=== PATIENT | male | born 1940 | race Caucasian/White ===

== ENCOUNTER 2019-09-17 23:19 | Inpatient (IN) ==
[2019-09-18 00:19] LABS: BASO# 0.03 X1000 (0.0-0.2); BASO% 0.6 % (0.0-0.8); HEMATOCRIT 35.9 % (42.0-52.0); HEMOGLOBIN 11.1 g/dL (14.0-18.0); LYMPH# 0.82 X1000 (1.2-3.4); MCHC 30.9 g/dL (33-37); MCV 90.4 FL (81-99); MONO# 0.45 X1000 (0.11-0.59); MONO% 9.3 % (1.7-9.3); MPV 10.5 FL (7.4-10.4); NEUT# 3.52 X1000 (1.4-6.5); NEUT% 73.1 % (42.2-75.2); PLT 176 X1000 (130-400); RBC 3.97 XMIL (4.7-6.1); WBC 4.82 X1000 (4.8-10.8)
[2019-09-18 00:47] LABS: ALB/GLOB RATIO 2.3; ALBUMIN 4.3 g/dL (3.5-5.0); CALCIUM 9.8 mg/dL (8.8-10.2); CREATININE 1.4 mg/dL (0.7-1.2); MAGNESIUM 1.3 mg/dL (1.5-2.7); POTASSIUM 4.8 mmol/L (3.5-5.1); TOTAL BILIRUBIN 0.47 mg/dL (0.20-1.00); TOTAL PROTEIN 6.2 g/dL (6.3-8.3)
--- NOTE | 2019-09-18 01:02 | PROVIDER DOCUMENTATION ---
HPI-Respiratory General - General Chief Complaint: Shortness of Breath Stated Complaint: ocugh/sob Time Seen by Provider: 09/17/19 23:20 Source: patient, EMS Allergies/Adverse Reactions: Patient Allergies Allergy/AdvReac Type Severity Reaction Status Date / Time No Known Allergies Allergy Verified 09/18/19 00:19 Home Medications: Home Medication List Medication Instructions Recorded Confirmed Last Taken Type Albuterol Sulfate [Proair Hfa] 8.5 gm IH BID 07/13/13 09/18/19 07/13/13 06:00 History Albuterol [Albuterol Neb] 2.5 mg INH [id number] 07/13/13 09/18/19 Unknown History Buspirone [Buspar] 15 mg PO BID 07/13/13 09/18/19 07/13/13 15:00 History Escitalopram [Lexapro] 10 mg PO DAILY 07/13/13 09/18/19 07/13/13 06:00 History Fenofibrate [Tricor] 145 mg PO QHS 07/13/13 09/18/19 07/12/13 20:00 History Finasteride 5 mg PO DAILY 07/13/13 09/18/19 07/13/13 06:00 History Fluticasone 50 Mcg Nasal [place] 1 spray WALDO DAILY 07/13/13 09/18/19 07/13/13 15:00 History [Flonase] LISINOpril [Prinivil] 10 mg PO DAILY 07/13/13 09/18/19 07/13/13 06:00 History Metformin E.r. [Glucophage Xr] 1,000 mg PO DAILY 07/13/13 09/18/19 07/13/13 15:00 History Metoprolol [Lopressor] 25 mg PO DAILY 07/13/13 09/18/19 07/13/13 06:00 History Ropinirole [Requip] 1 mg PO QHS 07/13/13 09/18/19 07/12/13 20:00 History Tamsulosin [Flomax] 0.4 mg PO QHS 07/13/13 09/18/19 07/12/13 20:00 History Tramadol HCl 50 mg PO Q8H PRN PRN 07/13/13 09/18/19 07/13/13 15:00 History Finasteride [Proscar] 5 mg PO DAILY 07/29/13 09/18/19 06/03/16 History Omeprazole [Prilosec] 20 mg PO DAILY 07/29/13 09/18/19 06/03/16 History Trazodone [Desyrel] 50 mg PO QHS 07/29/13 09/18/19 06/02/16 History Clopidogrel [Plavix] 75 mg PO DAILY #30 tablet 07/31/13 09/18/19 06/03/16 Rx PRAVAstatin [Pravachol] 20 mg PO QPM #30 tablet 07/31/13 09/18/19 06/02/16 Rx Budesonide/Formoterol Fumarate 10.2 gm IH DAILY 06/03/16 09/18/19 Unknown History [Symbicort 160-4.5 Mcg Inhaler] Folic Acid 1 mg PO DAILY tablet 07/05/17 09/18/19 Unknown Rx Iron Carbonyl/Ascorbic Acid 1 each PO DAILY tablet 07/05/17 09/18/19 Unknown Rx [Icar-C] - History of Present Illness-Resp Nature of Presenting Problem: A 78 y/o male presents with c/o SOB since morning. As per EMS pt was dyspneic on his 3 liters O2 and they increased it to 4 ltrs. Pt has been coughing a little and has some fever. Denies any CP or abd pain. Pt is from home. Unsure if has a exposure to sick persons. No recent travel. Review of Systems - Adult - REVIEW OF SYSTEMS - ADULT Constitutional: denies: no symptoms reported Eyes: denies: no symptoms reported Ears, Nose, Mouth & Throat: denies: no symptoms reported Cardiovascular: denies: no symptoms reported Respiratory: reports: see HPI Gastrointestinal: denies: no symptoms reported Genitourinary: denies: no symptoms reported Musculoskeletal: denies: no symptoms reported Integumentary: denies: no symptoms reported Neurological: denies: no symptoms reported Psychiatric: denies: no symptoms reported Endocrine: denies: no symptoms reported Hematologic/Lymphatic: denies: no symptoms reported Allergic/Immunologic: denies: no symptoms reported Past History - Adult - PAST MEDICAL HISTORY-ADULT Review of Records: reports: Old Records Reviewed, Nursing Assessment Review, Medications Reviewed, Social history reviewed & non-contributory. Major Childhood Illnesses: reports: denies history Cardiovascular: reports: HTN, hyperlipidemia Respiratory: reports: asthma, COPD Gastrointestinal: reports: GERD Obstetrical/Gynecological: reports: denies history Genitourinary: reports: other (BPH) Musculoskeletal: reports: arthritis Neurological: reports: CVA (per son), TIA Psychiatric: reports: depression, other (insomnia) Endocrine/Immune: reports: Diabetes Other Conditions: reports: denies history - PRIOR SURGERIES/PROCEDURES Surgical/Procedure History: reports: reviewed, not pertinent - IMMUNIZATION STATUS Childhood Immunizations: See Nurse Assessment Flu Vaccine: See Nurse Assessment - FAMILY HISTORY Family History: reviewed, not pertinent Physical Exam-General - PHYSICAL EXAM-ADULT Initial Vital Signs Reviewed: Yes - CONSTITUTIONAL General Appearance: alert, mild distress - EYES Eyes: PERRL/EOMI - HEAD, EARS, NOSE, MOUTH & THROAT HENMT: normocephalic/atraumatic, normal ENT inspection, pharynx normal. negative: moist mucous membranes - NECK Neck: supple - RESPIRATORY Respiratory: respiratory distress, decreased breath sounds, accessory muscle use , rhonchi, wheezing - CARDIOVASCULAR Cardiovascular: normal peripheral pulses, no edema, no murmur, tachycardia - GASTROINTESTINAL (ABDOMEN) Abdominal Exam: non tender, soft - MUSCULOSKELETAL Extremity: no pedal edema - SKIN Integumentary: normal color, warm/dry - NEUROLOGIC Neurologic: grossly normal - PSYCHIATRIC Psych/Mental Status: normal mood/affect, oriented x 3 Progress - PLAN OF CARE/RESULTS Progress/Plan/Lab Results: Vital Signs - 8 hr 09/18/19 00:07 Temperature 99.9 F H Pulse Rate 91 H Respiratory Rate 22 Blood Pressure 148/100 O2 Sat by Pulse Oximetry 94 L Laboratory Results - last 24 hr 09/17/19 09/17/19 09/17/19 23:45 23:45 23:45 WBC RBC Hgb Hct MCV MCH MCHC RDW Std Deviation Plt Count MPV Immature Gran % (Auto) Neut % (Auto) Lymph % (Auto) Delta % (Auto) Eos % (Auto) Baso % (Auto) Immature Gran # (Auto) Neut # (Auto) Lymph # (Auto) Delta # (Auto) Eos # (Auto) Baso # (Auto) Sodium 139 Potassium 4.8 Chloride 99 Carbon Dioxide 27 Anion Gap 13 BUN 34 H Creatinine 1.4 H Estimated GFR/1.73 m2 49 BUN/Creatinine Ratio 24 Glucose 153 H Calculated Osmolality 288 Calcium 9.8 Magnesium 1.3 L Total Bilirubin 0.47 AST 27 ALT 16 Alkaline Phosphatase 25 L Creatine Kinase 274 H Creatine Kinase Index 0.9 CK-MB (CK-2) 2.47 Troponin T High Sens 33 H Lhc-I-Hxltnytyxra Pept 1124 H Total Protein 6.2 L Albumin 4.3 Globulin 1.9 Albumin/Globulin Ratio 2.3 Plasma Lactate 09/17/19 09/17/19 23:45 23:45 WBC 4.82 RBC 3.97 L Hgb 11.1 L Hct 35.9 L MCV 90.4 MCH 28.0 MCHC 30.9 L RDW Std Deviation 14.0 Plt Count 176 MPV 10.5 H Immature Gran % (Auto) 0.0 Neut % (Auto) 73.1 Lymph % (Auto) 17.0 L Delta % (Auto) 9.3 Eos % (Auto) 0.0 Baso % (Auto) 0.6 Immature Gran # (Auto) 0.00 Neut # (Auto) 3.52 Lymph # (Auto) 0.82 L Delta # (Auto) 0.45 Eos # (Auto) 0.00 Baso # (Auto) 0.03 Sodium Potassium Chloride Carbon Dioxide Anion Gap BUN Creatinine Estimated GFR/1.73 m2 BUN/Creatinine Ratio Glucose Calculated Osmolality Calcium Magnesium Total Bilirubin AST ALT Alkaline Phosphatase Creatine Kinase Creatine Kinase Index CK-MB (CK-2) Troponin T High Sens Uoa-Y-Texyvpyhxcy Pept Total Protein Albumin Globulin Albumin/Globulin Ratio Plasma Lactate 0.9 Orders Category Date Time Status NEWS Score 2-4:Order NEWS Lactate Series NOW Care 09/18/19 00:11 Active CHEST-1 VIEW [RAD] Stat Exams 09/17/19 23:[address] THORAX W/O CONTRAST [CT] Stat Exams 09/18/19 02:05 Ordered CBC WITH ELECTRONIC DIFF [HEME] Stat Lab 09/18/19 00:02 Completed CK PROFILE [SP CHEM] Stat Lab 09/18/19 00:02 Completed COMPREHENSIVE METABOLIC PANEL [CHEM] Stat Lab 09/18/19 00:02 Completed LACTATE, PLASMA [CHEM] Lab 09/18/19 03:30 Uncollected LACTATE, PLASMA [CHEM] Lab 09/18/19 06:30 Uncollected LACTATE, PLASMA [CHEM] Q3H Lab 09/18/19 00:16 Completed MAGNESIUM [CHEM] Stat Lab 09/18/19 00:02 Completed PRO B-NATRIURETIC PEPTIDE Stat Lab 09/18/19 00:02 Completed TROPONIN T HIGH SENSITIVITY Stat Lab 09/18/19 00:02 Completed Azithromycin 500 mg/Ns [Zithromax 500 mg/Ns] Med 09/18/19 02:05 Ordered 500 mg in 250 ml IV NOW Furosemide [Lasix] Med 09/18/19 01:47 Discontinued 40 mg IV NOW ONE Rocephin 1 gm/Ns IV Now Med 09/18/19 02:05 Ordered CefTRIAXONE [Rocephin] 1 gm 0.9% Sodium Chloride Inj [Ns] 50 ml IV NOW Result Diagrams: 09/17/19 23:45 09/17/19 23:45 - REASSESSMENT Reassessment #1 Time Reassessed: 01:00 Status: improving - CONSULTS/PCP/HOSPITALIST Notification #1 *Consult/PCP/Hospitalist*: d/w Dr Hernández Time Discussed: 01:55 Consult Disposition: Admit Departure - Departure Date of Disposition Decision: 09/18/19 Time of Disposition Decision: 02:00 DIAGNOSIS: COPD with acute exacerbation, SOB (shortness of breath), Pneumonia Disposition: ADMITTED INPATIENT 09 Certified Medical Emergency: Emergent Condition: Stable - Critical Care Note This patient required my direct & personal management of CC.: No Attestation - Physician/ LESLEY Attestation Patient care was provided by Advanced Practice Provider:: No The physician spent face to face time with patient:: Yes Advanced Practice Provider documentation review:: Supervising physician onsite and consulted in the evaluation and care of this patient. The physician did have a face to face encounter with the patient.
[2019-09-18 01:27] LABS: CK INDEX 0.9 (0.0-2.5); CK-MB 2.47 ng/mL (0.0-5.0)
[2019-09-18] MEDS ORDERED: LASIX IV ONE (01:47)
[2019-09-18] MEDS ORDERED: ROCEPHIN 1 GM in NS 50 ML IV ONE (02:05)
[2019-09-18] MEDS ORDERED: ZITHROMAX 500 MG/NS 500 MG/250 ML IVPB IV ONE (02:05)
[2019-09-18 02:26] LABS: URINE SOURCE CATH
[2019-09-18 02:29] LABS: BILIRUBIN URINE NEGATIVE (NEGATIVE); BLOOD URINE TRACE (NEGATIVE); COLOR YELLOW; GLUCOSE URINE NEGATIVE (NEGATIVE); KETONE URINE NEGATIVE (NEGATIVE); LEUKOCYTES URINE NEGATIVE (NEGATIVE); NITRITE URINE NEGATIVE (NEGATIVE); PH URINE 6.5; PROTEIN URINE TRACE mg/dL (NEGATIVE); SP GRAVITY URINE 1.021; TURBIDITY URINE CLEAR (CLEAR); UROBILINOGEN URINE NORMAL (NORMAL)
[2019-09-18 02:30] LABS: UR EPITHELIAL CELLS <10 /HPF (<10); URINE BACTERIA NEGATIVE /HPF; URINE RBC <10 /HPF (<10); URINE WBC <10 /HPF (<10)
--- NOTE | 2019-09-18 03:26 | HISTORY AND PHYSICAL ---
PRIMARY CARE PHYSICIAN: Tj Arriola MD. REASON FOR ADMISSION: Three days history of shortness of breath and increasing productive cough. HISTORY OF PRESENT ILLNESS: Mr. Santi Guerin is a 78-year-old male with past medical history of type 2 diabetes, COPD on home O2 at 2 to 3 L, hypertension, BPH, reflux disease, hyperlipidemia, probable peripheral arterial disease, who was brought in today on account of having a 3-day history of worsening acute on chronic shortness of breath with a cough productive of yellowish- greenish sputum and subjective chills, but no fever. Denies any sick contacts. Denies any travel. Denies any upper respiratory symptoms. Denies any chest pain other than pleuritic chest pain in his right lung. He is a very poor historian by the way, so most of this history should be taking with pinch of salt. The patient denies any palpitations, lightheadedness, nausea, vomiting. He denies any other GI complaints. Admits to having poor urinary stream which is chronic. No hematuria. No bleeding from any orifice. No polyuria or polydipsia. No focal neurological complaints. REVIEW OF SYSTEMS: Twelve system review was done, positive findings per HPI. No PND, orthopnea. No leg swelling. ALLERGIES: No known allergies. HOME MEDICATIONS: He takes trazodone 50 mg at bedtime, Flomax 0.4 mg at bedtime, Requip 1 mg at bedtime, Tricor 145 mg at bedtime, albuterol inhaler q.4 hours p.r.n., buspirone 15 mg daily, finasteride 5 mg daily, Flonase 1 puff daily, metformin 750 mg daily, Lexapro 20 mg daily, metoprolol 25 mg daily, Prilosec 20 mg daily, lisinopril 10 mg daily, Symbicort daily, tramadol 50 mg at bedtime, folic acid 1 mg daily, ICar-C 1 tablet daily, Plavix 75 mg daily, Pravachol 20 mg daily. FAMILY HISTORY: Notable for heart disease and type 2 diabetes. SOCIAL HISTORY: Does smoke, but does dip snuff daily. Lives with his brother. He does not drink or use illicit drugs. SURGICAL HISTORY: Other than left eye and left leg surgery, nil of note. LAB WORK: Chest film reviewed by me shows findings consistent with COPD with possible right upper lobe infiltrate. White count 4000, hemoglobin and hematocrit 11 and 36, platelet count 176,000, with normal differential. BUN is 34, creatinine 1.4, glucose 154, magnesium 1.3. CK 274, troponin 33. ProBNP 1100. Lactate 0.9. Urinalysis, trace protein, trace blood. The flu swab negative. PHYSICAL EXAMINATION: GENERAL: A thin, chronically ill elderly white male who is in acute respiratory distress. He is alert and oriented to person, place, time with normal mood and affect. No myoclonic jerking. HEENT: Head is normocephalic, atraumatic. Eyes: LEYDA, EOMI. He is anicteric, not pale. ENT: Oropharyngeal exam is grossly normal. Some cyanosis. NECK: Supple. No visualized JVD. No bruit. No thyromegaly. He has somewhat decreased skin turgor. CHEST: Significantly decreased entry in both lung michel with a few expiratory wheezes. No crepitations appreciated. CARDIOVASCULAR: First and second heart sounds were heard. No gallops, murmurs, rubs. Rhythm is regular. ABDOMEN: Full, soft, nontender. No mass or organomegaly. Bowel sounds are hypoactive. RECTAL: Deferred. EXTREMITIES: No edema, clubbing, peripheral cyanosis. Distal pulse volumes, regular, symmetrical, full. NEUROLOGICAL: No gross focal deficits. SKIN: No overt breakdown, lesions or erythema. MUSCULOSKELETAL: Patient is a an elderly man with diffuse sarcopenia. ASSESSMENT: 1. Chronic obstructive pulmonary disease exacerbation. 2. Probable right upper lobe pneumonia. 3. Acute on chronic respiratory failure. 4. Peripheral arterial disease. 5. Type 2 diabetes. 6. Prior history of cerebrovascular accident. 7. Benign prostatic hypertrophy. 8. Hyperlipidemia. 9. Hypomagnesemia. 10. Anemia of chronic inflammation. 11. Probable restless legs syndrome. 12. Reflux disease. PLAN: Patient will be admitted and started on a short course of steroids and bronchodilators. Start the patient on Rocephin and Zithromax empirically. CT scan of the thorax is pending to evaluate the right upper lobe findings. If the patient does have any evidence of increased vascular markings, I would strongly recommend patient be hydrated with normal saline over the next 24 hours. He was given IV Lasix in the ER based on his x-ray findings, but clinically his clinical exam does not seem to match congestive heart failure. We will start patient on long- acting and short-acting insulin to address blood sugars. I would recommend the patient discontinue Prilosec and switch to Protonix due to the 4 month's affect on attenuating the effects of Plavix, which he is on for CVA prophylaxis. cc: Temitope Hernández MD
[2019-09-18] MEDS ORDERED: MAGNESIUM SULFATE 2 GM/S.W.I. 2 GM/50 ML IVPB IV ONE (03:50)
[2019-09-18] MEDS ORDERED: ZOFRAN IV PRN (03:50)
[2019-09-18] MEDS ORDERED: DUONEB (A & A) INH SCH (04:00)
[2019-09-18] MEDS: LOVENOX SUBQ SCH (04:45)
[2019-09-18] MEDS: MUCINEX PO SCH ×3 (04:45→21:14)
[2019-09-18] MEDS: PROTONIX [NONFORMULARY] PO SCH (06:24)
[2019-09-18] MEDS: HUMALOG SUBQ SCH ×4 (06:31→21:15)
--- NOTE | 2019-09-18 06:41 | Diag Imaging Result Doc PS360 ---
CHEST-1 VIEW - 09/17/2019 INDICATION: SOB COMPARISON: 08/19/2018 FINDINGS: There are faint interstitial infiltrates in the lung bases bilaterally. There is advanced COPD. There is biapical pleural scarring. Heart size is top normal. No pneumothorax or pleural effusion. IMPRESSION: 1. Advanced COPD. 2. Faint interstitial infiltrates in the lung bases, nonspecific. This could represent pulmonary edema, pneumonia, or viral infection. Electronically signed by Jim Campbell 09/18/2019 6:39 AM
--- NOTE | 2019-09-18 07:34 | Diag Imaging Result Doc PS360 ---
EXAM: CT THORAX W/O CONTRAST HISTORY: pneumonia TECHNIQUE: CT chest without contrast COMPARISON: 07/01/2017 FINDINGS: No large pleural effusions. Left medial pleural thickening inferiorly. No cardiomegaly. Moderate to prominent atherosclerosis. There are calcified mediastinal and hilar lymph nodes with scattered granuloma. Small hiatal hernia. Right posterior pleural thickening in the apex extending medially similar to the prior exam. There are several benign calcifications within this. There is bilateral fibrosis most pronounced in the apices. Severe emphysema. Tiny nodules/nodular densities scattered similar to the prior exam. Patchy reticulonodular infiltrates anteriorly in the left lower lobe. No consolidation. Limited images through the upper abdomen reveal several cysts within the liver. IMPRESSION: 1.Severe emphysema with fibrosis 2.Tiny reticulonodular infiltrates anteriorly in the left lower lobe 3.Small hiatal hernia 4.A preliminary report was given at 3:34 AM This exam was performed using automated exposure control, adjustment of mA or kV according to patient size, and/or use of iterative reconstruction technique. Electronically signed by Jones Garland 09/18/2019 7:32 AM
[2019-09-18] MEDS ORDERED: PREDNISONE PO SCH (09:00)
[2019-09-18] MEDS: VENTOLIN HFA INH SCH ×5 (10:24→23:33)
[2019-09-18] MEDS: PLAVIX PO SCH (10:42)
[2019-09-18] MEDS: LEXAPRO PO SCH (10:42)
[2019-09-18] MEDS: PROSCAR PO SCH (10:42)
[2019-09-18] MEDS: LOPRESSOR PO SCH (10:43)
[2019-09-18] MEDS: BUSPAR PO SCH ×2 (10:43→21:14)
[2019-09-18] MEDS: LANTUS INSULIN SUBQ SCH (10:43)
[2019-09-18] MEDS: FOLIC ACID PO SCH (10:43)
[2019-09-18] MEDS: ICAR-C PO SCH (10:43)
--- NOTE | 2019-09-18 11:37 | PROGRESS NOTE ---
DATE: 09/18/2019 BRIEF PROGRESS NOTE: The patient was admitted with progressive cough and dyspnea. Patient with a history of severe COPD. He is on oxygen at 2 to [address] showing likely fairly modest left lower lobe pneumonia. The patient continues to complain of dyspnea that is only mildly improved. On exam, he does have some mild wheezing and fairly significant decreased air entry throughout, likely mild pneumonia and possibly viral upper respiratory infection with COPD exacerbation. Given elevated respiratory rate and tachycardia beyond what I would expect, given his empiric findings, I am going to check a D-dimer on him but there is no limb swelling or no prolonged immobility that would put him at high risk for clot. Given symptoms with cough and dyspnea, I will check Covid-19 status. The patient is placed in isolation. Patient is on antibiotics with Rocephin and azithromycin. Kidney function stable. Glucose okay. Patient with mild anemia which is also stable from previous.
--- NOTE | 2019-09-18 17:49 | Diag Imaging Result Doc PS360 ---
EXAM: CT HEAD W/O CONTRAST HISTORY: r/o stroke TECHNIQUE: CT head without contrast COMPARISON: 07/01/2017 FINDINGS: No parenchymal hemorrhage. No epidural or subdural hematoma. No subarachnoid hemorrhage. Old left occipital infarct. There are chronic periventricular microvascular ischemic changes. No mass identified on this noncontrasted exam. No hydrocephalus. No sinus opacification. IMPRESSION: 1.No hemorrhage 2.Old right occipital infarct with chronic microvascular ischemic changes This exam was performed using automated exposure control, adjustment of mA or kV according to patient size, and/or use of iterative reconstruction technique. Electronically signed by Jones Garland 09/18/2019 5:47 PM
[2019-09-18] MEDS: ASPIRIN PO SCH (18:02)
[2019-09-18] MEDS ORDERED: PRAVACHOL PO SCH (21:00)
[2019-09-18] MEDS: REQUIP PO SCH (21:14)
[2019-09-18] MEDS: FLOMAX PO SCH (21:14)
[2019-09-18] MEDS: DESYREL PO SCH (21:14)
[2019-09-18] MEDS: LIPITOR PO SCH (22:07)
[2019-09-19] MEDS: ROCEPHIN 1 GM in NS 50 ML IV SCH ×2 (00:33→23:52)
[2019-09-19] MEDS: ZITHROMAX 500 MG/NS 500 MG/250 ML IVPB IV SCH (01:36)
[2019-09-19] MEDS: HUMALOG SUBQ SCH ×4 (06:10→22:59)
[2019-09-19] MEDS: VENTOLIN HFA INH SCH ×6 (06:16→21:15)
[2019-09-19] MEDS: LOVENOX SUBQ SCH (07:05)
[2019-09-19] MEDS: PROTONIX [NONFORMULARY] PO SCH (07:05)
[2019-09-19] MEDS ORDERED: CATAPRES PO PRN (07:45)
--- NOTE | 2019-09-19 08:02 | PROGRESS NOTE ---
DATE: 09/19/2019 SUBJECTIVE: Mr. Guerin is a 78-year-old white gentleman, known case of COPD, hypertension, gastritis, admitted with chest congestion, cough, shortness of breath, decreased exercise tolerance. The patient was admitted by hospitalist. The patient's family called me about the patient's admission. The patient does have cough, shortness of breath. He denied any fever. The patient was restless. No dysuria or hematuria. The patient denied known exposure to coronavirus. No diarrhea, blood or mucus in the stool. Oral intake is fair. Unquantified weight loss. The patient does have arthritic pain in the knee, at times in the lower back. PAST MEDICAL HISTORY: 1. Hypertension. 2. NIDDM. 3. Hyperlipidemia. 4. Gastritis. 5. COPD. 6. Chronic respiratory failure. 7. Situational depression. OBJECTIVE: Vital Signs: His vital signs noted. Neck: Neck is supple. No JVD, thyromegaly or lymphadenopathy. Chest: Bibasilar crepitation, occasional wheezing. CVS: S1 and S2 heard. Abdomen: Soft, globular. Bowel sounds present. Extremities: No cyanosis, clubbing. No acute DVT. SPRING COVERER: Alert, awake able to move all 4 limbs. IMAGING STUDIES: The patient's chest CT scan and head CT scan result reviewed. CONSIDERATION: 1. Chronic obstructive pulmonary disease exacerbation, pulmonary fibrosis and possible pneumonia. The patient is being tested for Coronavirus Disease 2019. 2. History suggestive of benign prostatic hyperplasia, gastritis. 3. Pulmonary fibrosis. 4. Non insulin-dependent diabetes mellitus requiring insulin. I am going to put him on Solu-Medrol, gentle hydration, continue IV antibiotics, pulmonary toilet, fall precaution. Overall plan discussed with the patient and he is in agreement. cc: Tj Arriola MD
[2019-09-19] MEDS: BUSPAR PO SCH ×2 (08:09→23:19)
[2019-09-19] MEDS: PROSCAR PO SCH (08:09)
[2019-09-19] MEDS: LEXAPRO PO SCH (08:10)
[2019-09-19] MEDS: PLAVIX PO SCH (08:10)
[2019-09-19] MEDS: FOLIC ACID PO SCH (08:10)
[2019-09-19] MEDS: ASPIRIN PO SCH (08:10)
[2019-09-19] MEDS: SOLU-MEDROL IV SCH ×2 (08:10→16:20)
[2019-09-19] MEDS: LOPRESSOR PO SCH (08:10)
[2019-09-19] MEDS: MUCINEX PO SCH ×2 (08:10→23:32)
[2019-09-19] MEDS: ICAR-C PO SCH (08:10)
[2019-09-19] MEDS: LANTUS INSULIN SUBQ SCH (08:12)
[2019-09-19 08:15] LABS: BASO# 0.01 X1000 (0.0-0.2); BASO% 0.2 % (0.0-0.8); HEMOGLOBIN 11.9 g/dL (14.0-18.0); LYMPH# 0.49 X1000 (1.2-3.4); LYMPH% 10.6 % (20.5-51.1); MCH 27.7 PG (27-31); MCHC 31.3 g/dL (33-37); MCV 88.6 FL (81-99); MPV 11.5 FL (7.4-10.4); NEUT# 3.53 X1000 (1.4-6.5); NEUT% 76.2 % (42.2-75.2); PLT 220 X1000 (130-400); RBC 4.29 XMIL (4.7-6.1); RDW 13.9 % (11.5-14.5); WBC 4.63 X1000 (4.8-10.8)
[2019-09-19] MEDS: POTASSIUM CHLORIDE 10 MEQ in NS 1,000 ML IV SCH ×2 (08:17→23:29)
[2019-09-19 11:29] LABS: CALCIUM 9.7 mg/dL (8.8-10.2); CREATININE 1.3 mg/dL (0.7-1.2); POTASSIUM 3.8 mmol/L (3.5-5.1)
[2019-09-19] MEDS: ATIVAN PO SCH ×2 (13:45→16:23)
[2019-09-19] MEDS: TYLENOL PO PRN (16:21)
[2019-09-19] MEDS: ULTRAM PO PRN (16:22)
[2019-09-19] MEDS ORDERED: STERILE WATER INJ. INJ PRN (16:47)
[2019-09-19] MEDS: GEODON IM PRN (17:51)
[2019-09-19] MEDS: DESYREL PO SCH (23:32)
[2019-09-19] MEDS: LIPITOR PO SCH (23:32)
[2019-09-19] MEDS: FLOMAX PO SCH (23:32)
[2019-09-19] MEDS: REQUIP PO SCH (23:32)
[2019-09-20] MEDS: ROCEPHIN 1 GM in NS 50 ML IV SCH (01:43)
[2019-09-20] MEDS: ZITHROMAX 500 MG/NS 500 MG/250 ML IVPB IV SCH (01:43)
[2019-09-20] MEDS: LOVENOX SUBQ SCH ×2 (01:44→03:06)
[2019-09-20] MEDS: SOLU-MEDROL IV SCH ×2 (01:44→10:40)
[2019-09-20] MEDS: VENTOLIN HFA INH SCH ×6 (01:45→20:41)
[2019-09-20] MEDS: HUMALOG SUBQ SCH ×4 (06:42→22:59)
[2019-09-20] MEDS: PROTONIX [NONFORMULARY] PO SCH (06:53)
[2019-09-20 07:22] LABS: BASO# 0.06 X1000 (0.0-0.2); BASO% 2.1 % (0.0-0.8); HEMATOCRIT 35.6 % (42.0-52.0); LYMPH# 0.35 X1000 (1.2-3.4); LYMPH% 12.4 % (20.5-51.1); MCH 27.8 PG (27-31); MCHC 30.9 g/dL (33-37); MCV 90.1 FL (81-99); MONO# 0.21 X1000 (0.11-0.59); MONO% 7.4 % (1.7-9.3); MPV 10.3 FL (7.4-10.4); NEUT# 2.21 X1000 (1.4-6.5); NEUT% 78.1 % (42.2-75.2); PLT 202 X1000 (130-400); RBC 3.95 XMIL (4.7-6.1); RDW 13.7 % (11.5-14.5); WBC 2.83 X1000 (4.8-10.8)
[2019-09-20 08:04] LABS: AGAP 11; ALB/GLOB RATIO 1.6; ALBUMIN 3.9 g/dL (3.5-5.0); ALKALINE PHOSPHATASE 24 U/L (32-122); BUN 42 mg/dL (8-22); CALCIUM 9.4 mg/dL (8.8-10.2); CHLORIDE 103 mmol/L (98-107); COSMO 297; CREATININE 1.1 mg/dL (0.7-1.2); ESTIMATED GFR > 60; GLUCOSE 158 mg/dL (70-104); GOT 76 U/L (10-34); GPT 34 U/L (10-44); MAGNESIUM 1.8 mg/dL (1.5-2.7); PHOSPHORUS 2.8 mg/dL (2.7-4.5); POTASSIUM 4.4 mmol/L (3.5-5.1); SODIUM 142 mmol/L (136-145); TCO2 28 mmol/L (25-35); TOTAL BILIRUBIN 0.36 mg/dL (0.20-1.00); TOTAL PROTEIN 6.3 g/dL (6.3-8.3)
[2019-09-20] MEDS: POTASSIUM CHLORIDE 10 MEQ in NS 1,000 ML IV SCH (10:38)
[2019-09-20] MEDS: ASPIRIN PO SCH (10:42)
[2019-09-20] MEDS: ATIVAN PO SCH ×3 (10:43→17:11)
[2019-09-20] MEDS: ICAR-C PO SCH (10:43)
[2019-09-20] MEDS: LOPRESSOR PO SCH (10:43)
[2019-09-20] MEDS: BUSPAR PO SCH ×2 (10:43→22:56)
[2019-09-20] MEDS: FOLIC ACID PO SCH (10:43)
[2019-09-20] MEDS: PLAVIX PO SCH (10:43)
[2019-09-20] MEDS: MUCINEX PO SCH ×2 (10:43→22:56)
[2019-09-20] MEDS: LEXAPRO PO SCH (10:43)
[2019-09-20] MEDS: PROSCAR PO SCH (10:43)
[2019-09-20] MEDS: LANTUS INSULIN SUBQ SCH (10:44)
[2019-09-20] MEDS: GEODON IM PRN ×2 (13:26→17:11)
[2019-09-20] MEDS ORDERED: STERILE WATER INJ. INJ ONE (13:37)
[2019-09-20] MEDS ORDERED: GEODON IM ONE (13:37)
--- NOTE | 2019-09-20 15:09 | PROGRESS NOTE ---
DATE: 09/20/2019 SUBJECTIVE: Patient denies having any acute complaints, but he appears to be somewhat hyperactive. OBJECTIVE: Vital Signs: Temperature 98.4 degrees, pulse 68 per minute, respiratory rate 18 per minute, blood pressure 151/74, pulse oximetry 98% on 3 L of oxygen via nasal cannula. General: Patient is alert and awake. He does not appear to be in any acute distress, but does appear to be somewhat hyperactive. Cardiovascular System: First and second heart sounds are audible without any murmurs or gallops. Respiratory System: Bilateral lung air entry is good without any rales or rhonchi. Gastrointestinal: Abdomen is soft and nondistended. Normal bowel sounds are present. DIAGNOSTIC DATA: CBC shows WBC count of 2.83, hemoglobin 11.0, hematocrit 35.6, and platelet count of 202,000. Comprehensive metabolic panel showed glucose levels of 158 with AST 76. Rest of the comprehensive metabolic panel is nondiagnostic. IMPRESSION: 1. Pneumonia with acute and chronic obstructive pulmonary disease exacerbation. 2. Patient is suspected of having COVID-19 since he is confirmed to have exposure to positive close family member with COVID-19. 3. Pulmonary fibrosis. 4. Diabetes mellitus that has been insulin-requiring. 5. Agitation. PLAN: The patient will be continued with broad-spectrum antibiotics along with albuterol inhaler as directed. I am going to discontinue IV Solu-Medrol because of the strong suspicion of novel coronavirus infection. I am going to obtain labs including repeat CBC and basic metabolic panel, along with LDH, CRP, procalcitonin, and ferritin levels in the morning tomorrow. We will continue with supportive care. I am going to give him Geodon 10 mg IM now and then continue on a p.r.n. basis. We will also order wrist restraints on a p.r.n. basis since he has been pulling his tubes and preventing his medical therapy. I am going to try to limit 1 on 1 nursing presence in the room because of extended exposure to the nursing staff. Further recommendations are forthcoming. cc: MD Tj Reid MD
[2019-09-20] MEDS ORDERED: GEODON IM PRN (19:02)
[2019-09-20] MEDS ORDERED: STERILE WATER INJ. INJ PRN (19:02)
[2019-09-20] MEDS: REQUIP PO SCH (22:56)
[2019-09-20] MEDS: LIPITOR PO SCH (22:57)
[2019-09-20] MEDS: DESYREL PO SCH (22:59)
[2019-09-20] MEDS: FLOMAX PO SCH (22:59)
[2019-09-20] MEDS ORDERED: VANCOMYCIN IV PER PHARMACY MISC SCH (23:15)
[2019-09-21] MEDS: VENTOLIN HFA INH SCH ×8 (00:08→23:15)
[2019-09-21] MEDS: ZITHROMAX 500 MG/NS 500 MG/250 ML IVPB IV SCH ×2 (00:33→08:40)
[2019-09-21] MEDS ORDERED: VANCOMYCIN 1,900 MG in NS 500 ML IV ONE (01:00)
[2019-09-21] MEDS: ROCEPHIN 1 GM in NS 50 ML IV SCH (01:58)
[2019-09-21] MEDS: ULTRAM PO PRN (06:19)
[2019-09-21] MEDS: PROTONIX [NONFORMULARY] PO SCH (06:19)
[2019-09-21] MEDS: LOVENOX SUBQ SCH (06:20)
[2019-09-21 06:48] LABS: BASO# 0.04 X1000 (0.0-0.2); BASO% 0.9 % (0.0-0.8); HEMATOCRIT 35.2 % (42.0-52.0); HEMOGLOBIN 10.6 g/dL (14.0-18.0); LYMPH# 0.71 X1000 (1.2-3.4); LYMPH% 16.5 % (20.5-51.1); MCH 27.6 PG (27-31); MCHC 30.1 g/dL (33-37); MCV 91.7 FL (81-99); MONO# 0.83 X1000 (0.11-0.59); MONO% 19.3 % (1.7-9.3); MPV 10.5 FL (7.4-10.4); NEUT# 2.72 X1000 (1.4-6.5); NEUT% 63.3 % (42.2-75.2); PLT 226 X1000 (130-400); RBC 3.84 XMIL (4.7-6.1); RDW 13.6 % (11.5-14.5)
[2019-09-21] MEDS: POTASSIUM CHLORIDE 10 MEQ in NS 1,000 ML IV SCH ×2 (06:56→06:57)
[2019-09-21 07:36] LABS: AGAP 8; BUN 37 mg/dL (8-22); CHLORIDE 105 mmol/L (98-107); COSMO 293; ESTIMATED GFR > 60; GLUCOSE 79 mg/dL (70-104); POTASSIUM 4.3 mmol/L (3.5-5.1); SODIUM 143 mmol/L (136-145); TCO2 30 mmol/L (25-35)
[2019-09-21] MEDS: HUMALOG SUBQ SCH ×4 (07:49→22:24)
[2019-09-21 08:07] LABS: C REACTIVE PROT QUANT 32.59 mg/L (0.00-5.00)
[2019-09-21] MEDS: LANTUS INSULIN SUBQ SCH (08:41)
[2019-09-21] MEDS: LOPRESSOR PO SCH (08:44)
[2019-09-21] MEDS: MUCINEX PO SCH ×2 (08:44→22:20)
[2019-09-21] MEDS: ASPIRIN PO SCH (08:44)
[2019-09-21] MEDS: FOLIC ACID PO SCH (08:44)
[2019-09-21] MEDS: ATIVAN PO SCH ×3 (08:44→16:41)
[2019-09-21] MEDS: PLAVIX PO SCH (08:44)
[2019-09-21] MEDS: PROSCAR PO SCH (08:44)
[2019-09-21] MEDS: LEXAPRO PO SCH (08:44)
[2019-09-21] MEDS: BUSPAR PO SCH ×2 (08:44→22:21)
[2019-09-21] MEDS: ICAR-C PO SCH (08:44)
--- NOTE | 2019-09-21 09:58 | Diag Imaging Result Doc PS360 ---
CHEST-PORTABLE - 09/21/2019 INDICATION: Dyspnea; COPD COMPARISON: 09/17/2019 FINDINGS: Stable COPD changes. Stable pleural thickening with fibrosis at the right lung apex. No new or focal infiltrates. Heart size remains normal. IMPRESSION: No change from prior. Electronically signed by Jim Campbell 09/21/2019 9:56 AM
--- NOTE | 2019-09-21 14:28 | PROGRESS NOTE ---
DATE: 09/21/2019 SUBJECTIVE: The patient denies having any acute complaints. He states that his breathing is somewhat better today as compared to the previous days. OBJECTIVE: Vital Signs: Temperature 97.8 degrees, pulse 60 per minute, respiratory rate 21 per minute, blood pressure 164/103, pulse oximetry 98% on room air. General: Patient is alert and awake. He does appear to be slightly dyspneic. Cardiovascular System: First and second heart sounds are audible without any murmurs or gallops. Respiratory System: Bilateral lung air entry is slightly decreased with minimal wheeze bilaterally on auscultation. No rales are present. DIAGNOSTIC DATA: CBC shows WBC count of 4.30, hemoglobin 10.6, hematocrit 35.2, and platelet count of 226,000. Basic metabolic panel done this morning is nondiagnostic. C- reactive protein is elevated at 32.59 with ferritin levels at 271. Coronavirus testing was negative, although the patient had exposure to the COVID-19 virus. Chest x-ray done today showed COPD changes with pulmonary fibrosis but no new or focal infiltrates were seen. The patient did have patchy infiltrates on chest CT done on September 18, 2019, however. IMPRESSIONS: 1. Pneumonia with acute on chronic obstructive pulmonary disease exacerbation. 2. Pulmonary fibrosis. 3. Type 2 diabetes mellitus that has been insulin requiring. 4. Altered mental status with agitation at times. PLAN: The patient will be continued on broad-spectrum antibiotics including ceftriaxone and IV azithromycin. Last night he had a positive blood culture grew for gram-positive cocci, because of which he was started on IV vancomycin as well. Since we know that his cousin was tested positive for COVID-19 virus, to whom he had exposure and because of his symptoms, we are going to repeat testing for COVID-19. We are going to continue him on bronchodilators and we will continue to give him Geodon on as-needed basis for agitation and put wrist restraints on a p.r.n. basis since he has been pulling his tubes at times. We will continue with the current insulin regimen of Lantus along with lispro insulin. Further recommendations will be as per hospital course. cc: MD Tj Reid MD MTDD
[2019-09-21] MEDS: REQUIP PO SCH (22:20)
[2019-09-21] MEDS: LIPITOR PO SCH (22:21)
[2019-09-21] MEDS: FLOMAX PO SCH (22:21)
[2019-09-22] MEDS: DESYREL PO SCH ×2 (01:05→21:23)
[2019-09-22] MEDS: ROCEPHIN 1 GM in NS 50 ML IV SCH (01:32)
[2019-09-22] MEDS: VANCOMYCIN 1,400 MG in NS 250 ML IV SCH (01:33)
[2019-09-22] MEDS: VENTOLIN HFA INH SCH ×6 (03:30→23:30)
[2019-09-22] MEDS: POTASSIUM CHLORIDE 10 MEQ in NS 1,000 ML IV SCH ×3 (04:30→22:44)
[2019-09-22] MEDS: PROTONIX [NONFORMULARY] PO SCH ×2 (04:34→06:39)
[2019-09-22] MEDS: LOVENOX SUBQ SCH (04:34)
[2019-09-22] MEDS: ULTRAM PO PRN ×3 (04:35→21:23)
[2019-09-22] MEDS: HUMALOG SUBQ SCH ×4 (06:39→21:40)
--- NOTE | 2019-09-22 08:05 | PROGRESS NOTE ---
DATE: 09/22/2019 SUBJECTIVE: Mr. Guerin is doing some better today. Chest congestion and cough is less. No high-grade fever or chills. Confusion is less. No nausea or vomiting. Denied any diarrhea. No dysuria or hematuria. The patient had a fair weekend. OBJECTIVE: Vital signs: Blood pressure 162/54, pulse 104, respirations 20, temperature 97.9 degrees. Skin: Senile turgor. Neck: Supple. No JVD, thyromegaly or lymphadenopathy. Chest: Bilateral good air entry present. Occasional wheezing. CVS: S1 and S2 heard. Abdomen: Soft, nontender. Bowel sounds present. Extremities: No cyanosis, clubbing. No acute DVT. Patient does have some abrasion on the left arm. 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 LABORATORY DATA: Done over the weekend reviewed. The one ordered for today is pending. The patient's blood sugar is staying low. I did decrease his insulin. DISPOSITION: Out of bed to chair. Fall precaution. Continue rest of the treatment. Overall plan discussed with the patient and he is in agreement. CONSIDERATION: 1. Chronic obstructive pulmonary disease exacerbation. 2. Chronic respiratory failure. 3. Gastritis and reflux disease. 4. Osteoarthritis. 5. The patient's Coronavirus Disease 2019 test was negative. We will continue current treatment. Waiting for the repeat test. cc: Tj Arriola MD
[2019-09-22 08:47] LABS: BASO# 0.09 X1000 (0.0-0.2); BASO% 1.8 % (0.0-0.8); EOS# 0.05 X1000 (0.0-0.7); HEMATOCRIT 34.3 % (42.0-52.0); HEMOGLOBIN 11.1 g/dL (14.0-18.0); IMM GRAN# 0.03 X1000 (0.0-0.04); IMM GRAN% 0.6 % (0.0-0.5); LYMPH# 1.21 X1000 (1.2-3.4); LYMPH% 23.6 % (20.5-51.1); MCH 29.2 PG (27-31); MCHC 32.4 g/dL (33-37); MCV 90.3 FL (81-99); MONO# 0.71 X1000 (0.11-0.59); MONO% 13.8 % (1.7-9.3); MPV 11.3 FL (7.4-10.4); NEUT# 3.04 X1000 (1.4-6.5); NEUT% 59.2 % (42.2-75.2); PLT 217 X1000 (130-400); RDW 13.4 % (11.5-14.5); WBC 5.13 X1000 (4.8-10.8)
[2019-09-22 08:55] LABS: AGAP 11; ALB/GLOB RATIO 1.3; ALKALINE PHOSPHATASE 22 U/L (32-122); BUN 26 mg/dL (8-22); CALCIUM 8.1 mg/dL (8.8-10.2); CHLORIDE 106 mmol/L (98-107); COSMO 284; ESTIMATED GFR > 60; GLUCOSE 65 mg/dL (70-104); GOT 56 U/L (10-34); GPT 30 U/L (10-44); POTASSIUM 4.8 mmol/L (3.5-5.1); SODIUM 141 mmol/L (136-145); TCO2 24 mmol/L (25-35); TOTAL BILIRUBIN 0.27 mg/dL (0.20-1.00); TOTAL PROTEIN 5.3 g/dL (6.3-8.3)
[2019-09-22 09:07] LABS: BANDS 2 % (0-1); LYMPHS 46 % (21-51); MONO 2 % (1-9); SEGS 50 % (42-75)
[2019-09-22] MEDS: LEXAPRO PO SCH (09:28)
[2019-09-22] MEDS: PLAVIX PO SCH (09:28)
[2019-09-22] MEDS: PROSCAR PO SCH (09:28)
[2019-09-22] MEDS: LOPRESSOR PO SCH (09:28)
[2019-09-22] MEDS: FOLIC ACID PO SCH (09:28)
[2019-09-22] MEDS: ATIVAN PO SCH ×3 (09:28→21:24)
[2019-09-22] MEDS: BUSPAR PO SCH ×2 (09:28→21:23)
[2019-09-22] MEDS: ICAR-C PO SCH (09:28)
[2019-09-22] MEDS: ASPIRIN PO SCH (09:28)
[2019-09-22] MEDS: ZITHROMAX 500 MG/NS 500 MG/250 ML IVPB IV SCH (09:29)
[2019-09-22] MEDS: MUCINEX PO SCH ×2 (09:29→21:23)
[2019-09-22] MEDS: LANTUS INSULIN SUBQ SCH (09:32)
[2019-09-22] MEDS: TYLENOL PO PRN (21:23)
[2019-09-22] MEDS: REQUIP PO SCH (21:23)
[2019-09-22] MEDS: LIPITOR PO SCH (21:24)
[2019-09-22] MEDS: FLOMAX PO SCH (21:24)
[2019-09-23] MEDS: VANCOMYCIN 1,400 MG in NS 250 ML IV SCH (01:16)
[2019-09-23] MEDS: ROCEPHIN 1 GM in NS 50 ML IV SCH (01:16)
[2019-09-23] MEDS: VENTOLIN HFA INH SCH ×6 (03:45→23:31)
[2019-09-23] MEDS: PROTONIX [NONFORMULARY] PO SCH ×2 (04:48→11:04)
[2019-09-23] MEDS: LOVENOX SUBQ SCH (04:48)
--- NOTE | 2019-09-23 07:50 | PROGRESS NOTE ---
DATE: 09/23/2019 SUBJECTIVE: Mr. Guerin is doing fair. No unusual agitation. No high-grade fever or chills. Occasional cough, no expectoration. Denied any nausea or vomiting. Oral intake is variable. The patient had another Covid test done and result is pending. OBJECTIVE: Vital Signs: Noted. Neck: Supple. No JVD. Lungs: Bilateral good air entry present. CVS: S1 and S2 heard. Abdomen: Soft, nontender. Bowel sounds present. 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 Able to move all 4 limbs. Laboratory Data: Done yesterday, noted. Hemoglobin 11.1, hematocrit 34.3, WBC count 5.13, platelet count 217,000. Electrolytes fairly benign. I am going to resume his prednisone by mouth. C-reactive protein was 32.59. CONSIDERATION: 1. Chronic obstructive pulmonary disease exacerbation. 2. Pneumonia. 3. Possible sepsis. 4. Diabetes mellitus. 5. Result of Covid test is pending. PLAN: Meanwhile, continue current treatment. Close observation. Overall plan discussed with the patient and he is in agreement. cc: Tj Arriola MD
[2019-09-23] MEDS: HUMALOG SUBQ SCH ×4 (11:04→20:37)
[2019-09-23] MEDS: ZITHROMAX 500 MG/NS 500 MG/250 ML IVPB IV SCH (11:12)
[2019-09-23] MEDS: ATIVAN PO SCH ×3 (11:13→20:48)
[2019-09-23] MEDS: POTASSIUM CHLORIDE 10 MEQ in NS 1,000 ML IV SCH (11:13)
[2019-09-23] MEDS: LOPRESSOR PO SCH (11:13)
[2019-09-23] MEDS: FOLIC ACID PO SCH (11:13)
[2019-09-23] MEDS: PROSCAR PO SCH (11:14)
[2019-09-23] MEDS: BUSPAR PO SCH ×2 (11:14→20:32)
[2019-09-23] MEDS: ASPIRIN PO SCH (11:14)
[2019-09-23] MEDS: LEXAPRO PO SCH (11:14)
[2019-09-23] MEDS: ICAR-C PO SCH (11:14)
[2019-09-23] MEDS: MUCINEX PO SCH ×2 (11:14→20:32)
[2019-09-23] MEDS: LANTUS INSULIN SUBQ SCH (11:14)
[2019-09-23] MEDS: PLAVIX PO SCH (11:14)
[2019-09-23] MEDS: PREDNISONE PO SCH (11:17)
[2019-09-23] MEDS: DESYREL PO SCH (20:32)
[2019-09-23] MEDS: FLOMAX PO SCH (20:33)
[2019-09-23] MEDS: LIPITOR PO SCH (20:33)
[2019-09-23] MEDS: REQUIP PO SCH (20:33)
[2019-09-24] MEDS: VANCOMYCIN 1,400 MG in NS 250 ML IV SCH (01:12)
[2019-09-24] MEDS: ROCEPHIN 1 GM in NS 50 ML IV SCH (02:55)
[2019-09-24] MEDS: VENTOLIN HFA INH SCH ×3 (03:18→11:17)
[2019-09-24] MEDS: POTASSIUM CHLORIDE 10 MEQ in NS 1,000 ML IV SCH (06:59)
[2019-09-24] MEDS: HUMALOG SUBQ SCH (07:00)
[2019-09-24] MEDS: LOVENOX SUBQ SCH (07:00)
[2019-09-24] MEDS: PROTONIX [NONFORMULARY] PO SCH (07:01)
[2019-09-24] MEDS: ZITHROMAX 500 MG/NS 500 MG/250 ML IVPB IV SCH (10:01)
[2019-09-24] MEDS: FOLIC ACID PO SCH (10:03)
[2019-09-24] MEDS: ATIVAN PO SCH (10:03)
[2019-09-24] MEDS: MUCINEX PO SCH (10:03)
[2019-09-24] MEDS: PREDNISONE PO SCH (10:03)
[2019-09-24] MEDS: LOPRESSOR PO SCH (10:03)
[2019-09-24] MEDS: BUSPAR PO SCH (10:03)
[2019-09-24] MEDS: PROSCAR PO SCH (10:04)
[2019-09-24] MEDS: PLAVIX PO SCH (10:04)
[2019-09-24] MEDS: ASPIRIN PO SCH (10:04)
[2019-09-24] MEDS: ICAR-C PO SCH (10:04)
[2019-09-24] MEDS: LEXAPRO PO SCH (10:04)
[2019-09-24] MEDS: LANTUS INSULIN SUBQ SCH (10:05)
[2019-09-24 14:33] VITALS: BP 144/66
--- NOTE | 2019-09-25 20:20 | DISCHARGE SUMMARY ---
ADMISSION DATE: 09/18/2019 DISCHARGE DATE: 09/24/2019 FINAL DISCHARGE DIAGNOSES: 1. Pneumonia. 2. Chronic obstructive pulmonary disease exacerbation. 3. Possible sepsis. 4. Diabetes mellitus. 5. Chronic hypoxemic and hypercarbic respiratory failure. 6. Dementia. 7. Gastritis and reflux disease. 8. Osteoarthritis. 9. Hyperlipidemia. 10. Hypomagnesemia. HOSPITAL COURSE: Mr. Guerin, a 79-year-old, gentleman with multiple medical problems, admitted with chest congestion, cough, expectoration, increasing shortness of breath, decreased exercise tolerance. The patient was evaluated in the ER, admitted for further care. There was concern about exposure to COVID patient. Initially, patient was admitted to telemetry bed. Then he was transferred to isolation. We did COVID test, and it was negative. Because of strong history of exposure, we repeated COVID test, and it was negative again. The patient was treated with IV antibiotics, IV steroid, bronchodilator treatment. His clinical condition gradually improved. The patient was transferred to regular floor. The patient was eager to go home. His shortness of breath improved. Chest congestion and cough improved. The patient was delirious, and his delirium also improved, and I decided to discharge patient home. The patient's blood culture was positive for coagulase-negative Staphylococcus and then diphtheroid. Overall discharge condition satisfactory. The patient was discharged home on doxycycline. LABORATORY DATA: Hemoglobin 11.1, hematocrit 34.3, platelet count 217, WBC count 5.13. Electrolytes were fairly benign. BUN 26, creatinine was 1. The patient's blood sugar was fluctuating. C-reactive protein was 32.59. Procalcitonin was negative. Coronavirus test was negative x2. Urinalysis was benign. Overall discharge condition satisfactory. Advised patient to continue home oxygen nebulizer treatment. Followup with me in 4-5 days. Advised him to isolate himself in case of more distress. Call us back or go to emergency room. cc: Tj Arriola MD
== END 2019-09-24 14:17 | disposition home health service (06) | DRG 871 ==
LOC: ED 23:19 → SUPCPDRO 09-18 03:30 → 1N 09-18 03:30 → SUATTDRO 09-18 03:30 → 4N 09-18 09:23
PROVIDERS: ADMIT Internal Medicine; ATTEND Internal Medicine